=== PATIENT | female | born 2000 | race Caucasian/White ===

== ENCOUNTER 2020-05-05 20:42 | Emergency (ER) | payer OTHER ==
[~2020-05-05] VITALS: Ht 177.8 cm; Wt 85.0 kg
[2020-05-05] MEDS ORDERED: DEXAMETHASONE 4 MG TABLET PO ONE (21:30)
[2020-05-05] MEDS ORDERED: ONDANSETRON ODT 4 MG TAB.RAPDIS. PO ONE (21:30)
[2020-05-05] MEDS ORDERED: BUTALB/APAP/CAFEIN 50/325/40MG TABLET. PO ONE (21:30)
[2020-05-05 21:33] LABS: BILIRUBIN,URINE NEGATIVE (NEG); CLARITY,URINE CLEAR; COLOR,URINE YELLOW; NITRITE,URINE NEGATIVE (NEG); PROTEIN,URINE NEGATIVE (NEG-TRACE); UROBILINOGEN,URINE 0.2 mg/dL (0.2 mg/dL)
[2020-05-05 21:38] LABS: BACTERIA,URINE MANY /HPF (0-FEW)
[2020-05-05 21:40] LABS: RBC,URINE RARE /HPF (0-2); WBC,URINE OCC /HPF (0-4)
[2020-05-05] MEDS ORDERED: ONDA4TAB12 PO (21:53)
[2020-05-05] MEDS ORDERED: BUTA1TAB23 PO (21:53)
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
[2020-05-05] MEDS ORDERED: KETOROLAC 30 MG/ML VIAL. IM ONE (22:00)
[2020-05-05 22:30] VITALS: BP 135/70
== END 2020-05-05 22:47 | disposition home or self-care (01) ==
LOC: ER 20:42 → EDBD 20:42 → ER 22:47
DX: G89.29 Other chronic pain (principal); R51.9 Headache, unspecified; R11.0 Nausea
CPT/HCPCS: 81001; 81025; 87086; 96372; 99284; J1885